=== PATIENT | male | born 1970 | race Caucasian/White ===

== ENCOUNTER 2018-05-22 15:45 | Outpatient (REF) | payer MEDICAID, SELFPAY | END 2018-05-22 16:05 | LOC: NCHCN 15:45 | PROVIDERS: PCP Physician Assistant Medical; Visit Provider Physician Assistant Medical | DX: N49.2 Inflammatory disorders of scrotum (principal) | CPT/HCPCS: 87077; 87070; 87186; 87205 ==

== ENCOUNTER 2018-06-30 00:11 | Outpatient (CLI) | payer MEDICAID, SELFPAY ==
--- NOTE | 2018-06-30 11:30 | ETT_ITS ---
*[facility]* *[facility]* [address] [place] [address] Stress Electrocardiography Rikki protocol Date of study: 06/30/2018 *PATIENT PRESENTATION* Height: 175.3cm (69in) Blood Pressure: Weight: 128.6kg (283lb) BSA: 2.56m^2 Referring physician: Garrison Colmenares V Ordering physician: Garrison Colmenares V Impressions: - Indeterminate stress test due to inadequate heart rate. - Poor functional capacity. Summary: 1. Stress: The target heart rate was not achieved. (75% THR achieved) Recommendations: Suggest getting pharmacological MPI. Indication: R07.89. History: REASON FOR VISIT: SHORTNESS OF BREATH AND CHEST PAINS WITH PHYSICAL ACTIVITY. PT HAS HYPERTENSION, DIABETES, SLEEP APNEA AND HYPERLIPIDEMIA.. Risk factors: Current tobacco use. Hypertension. Diabetes mellitus. Obesity. Dyslipidemia. Cholesterol: 216mg/dl. HDL: 64mg/dl. LDL: 118mg/dl. Triglycerides: 197mg/dl. ALLERGIES: PENICILLIN. MEDICATIONS: PAXIL 40 MG DAILY. METOPROLOL SUCCINATE ER 200 MG DAILY. HYDROCHLOROTHIAZIDE 25 MG DAILY. ROSUVASTATIN 20 MG AT BEDTIME. OMEPRAZOLE 20 MG DAILY. LOSARTAN 100 MG DAILY. NOVOLOG FLEXPEN 50 UNITS TO 60 UNITS AC TID. LEVEMIR FLEXTOUCH 100 UNITS TO 200 UNITS AT BEDTIME. ATIVAN 0.5 MG BID PRN. Protocol: Rikki protocol. Baseline ECG: SINUS RHYTHM. HR 74 BPM. Stress results: Maximal heart rate during stress was 132bpm (76% of maximal predicted heart rate). The maximal predicted heart rate was 174bpm. The target heart rate was not achieved. (75% THR achieved) Stress ECG: PT WAS NOT ABLE TO MEET HIS TARGET HEART RATE. TREADMILL PORTION OF STRESS ENDED IN 3 MINUTES & 49 SECONDS PER PT'S REQUEST DUE TO NAUSEA AND SHORTNESS OF BREATH BLUNTED HEART RATE RESPONSE TO TREADMILL EXERCISE. PT IS ON METOPROLOL SUCCINATE 200 MG DAILY (THIS AM DOSE WAS HELD). EXAGERATED BLOOD PRESSURE RESPONSE TO EXERCISE MAX HR = 132 MAX BLOOD PRESSURE = 248/72 % OF TARGET = 75 APPROXIMATE METS ACHIEVED = 5.63 NO ANGINA NO SIGNIFICANT ST SEGMENT CHANGES MARKEDLY DIMINISHED FUNCTIONAL CAPACITY FOR EXERCISE. Study data: Alireza Holloway MD supervised and was readily available during the procedure. This study was interpreted by [facility]. Study status: Routine. Consent: The risks, benefits, and alternatives to the procedure were explained to the patient and informed consent was obtained. Procedure: Initial setup. A baseline ECG was recorded. Surface ECG leads and manual cuff blood pressure measurements were monitored. Heart sounds: Normal. Lung sounds: Normal. Treadmill exercise testing was performed using the Rikki protocol. Study completion: The patient tolerated the procedure well and was discharged from the lab. Discharge: The patient left the laboratory in stable condition. Birthdate: Patient birthdate: 1970. Sex: Gender: male. Study date: Study date: 06/30/2018. Study time: 11:30 AM. Signature Documentation: The Stress ECG portion of this study was interpreted by Alireza Holloway MD. Electronically signed by Alireza Holloway 06/30/2018 13:13
--- NOTE | 2018-06-30 12:14 | MERGE_ITS ---
*[facility]* *[facility]* [address] [place] [address] Date of study: 06/30/2018 Transthoracic Echocardiography M-mode, complete 2D, complete spectral Doppler, and color Doppler *STUDY CONCLUSIONS* Summary: 1. Left ventricle: The cavity size was normal. Wall thickness was increased in a pattern of mild LVH. Systolic function was normal. The estimated ejection fraction was 55-60%. Wall motion was normal; there were no regional wall motion abnormalities. 2. Right ventricle: The cavity size was normal. Systolic function was normal. 3. Inferior vena cava: The vessel was normal in size. The respirophasic diameter changes were in the normal range (greater than or equal to 50%), consistent with normal central venous pressure. *PATIENT PRESENTATION* Height: 175.3cm ((69in) ) S/D Pressure: 150 / 72 Weight: 127.5kg ((280.4lb) ) BSA: 2.55m^2 Test start time: 12:14 PM. Test stop time: 01:00 PM. PERFORMING Unknown Alireza Story PERFORMING [facility] [employer] Sharmila Benson CONSULTING Garrison Colmenares Benjamin V REFERRING [place], Benjamin V *PROCEDURE DATA* Procedure information: This study was interpreted by [facility]. Pertinent images and digital data are archived for permanent storage and are available for subsequent review. No prior study was available for comparison. Study status: Routine. Transthoracic echocardiography. M-mode, complete 2D, complete spectral Doppler, and color Doppler. A Transthoracic Echocardiogram was performed. Scanning was performed from the parasternal, apical, subcostal, and suprasternal notch acoustic windows. Images were obtained using an ev3, [employer] 2000 cardiac ultrasound machine. Image quality was adequate. Study completion: The patient tolerated the procedure well. There were no complications. History: PMH: Chest Pain. *CARDIAC ANATOMY* Left ventricle: The cavity size was normal. Wall thickness was increased in a pattern of mild LVH. Systolic function was normal. The estimated ejection fraction was 55-60%. Wall motion was normal; there were no regional wall motion abnormalities. Findings consistent with diastolic dysfunction. There was no evidence of elevated ventricular filling pressure by Doppler parameters. Aortic valve: Trileaflet; normal thickness leaflets. Mobility was not restricted. Doppler: Transvalvular velocity was within the normal range. There was no stenosis. There was no significant regurgitation. VTI ratio of LVOT to aortic valve: 0.87. Valve area (VTI): 3.1cm^2. Indexed valve area (VTI): 1.2cm^2/m^2. Peak velocity ratio of LVOT to aortic valve: 0.78. Valve area (Vmax): 2.8cm^2. Indexed valve area (Vmax): 1.1cm^2/m^2. Mean velocity ratio of LVOT to aortic valve: 0.74. Valve area (Vmean): 2.6cm^2. Indexed valve area (Vmean): 1cm^2/m^2. Mean gradient (S): 5.5mm Hg. Peak gradient (S): 9.9mm Hg. Aorta: Aortic root: The aortic root was normal in size. Ascending aorta: The ascending aorta was normal in size. Mitral valve: Structurally normal valve. Mobility was not restricted. Doppler: Transvalvular velocity was within the normal range. There was no evidence for stenosis. There was trivial regurgitation. Valve area by pressure half-time: 2.8cm^2. Indexed valve area by pressure half-time: 1.1cm^2/m^2. Left atrium: The atrium was normal in size. Right ventricle: The cavity size was normal. Systolic function was normal. Pulmonic valve: Poorly visualized. Doppler: Transvalvular velocity was within the normal range. There was no evidence for stenosis. There was no significant regurgitation. Tricuspid valve: Structurally normal valve. Doppler: Transvalvular velocity was within the normal range. There was no evidence for stenosis. There was trivial regurgitation. Pulmonary artery: Poorly visualized. Systolic pressure could not be accurately estimated. Right atrium: The atrium was normal in size. Pericardium: There was no pericardial effusion. Systemic veins: Inferior vena cava: The vessel was normal in size. The respirophasic diameter changes were in the normal range (greater than or equal to 50%), consistent with normal central venous pressure. Measurements Left ventricle Value Reference LV ID, ED, PLAX 4.8 cm 3.5 - 6.0 LV ID, ES, PLAX 3.0 cm 2.1 - 4.0 LV PW thickness, ED, PLAX 1.2 cm LV end-diastolic volume, 1-p A2C 113 ml LV ejection fraction, 1-p A2C 54 % LV end-diastolic volume, 1-p A4C 93 ml LV ejection fraction, 1-p A4C 50 % LV e', lateral 0.088 m/sec LV E/e', lateral 8 LV e', medial 0.077 m/sec LV E/e', medial 9 LV e', average 0.083 m/sec LV E/e', average 8 Ventricular septum Value Reference IVS thickness, ED, PLAX 1.2 cm LVOT Value Reference LVOT ID, A-P 2.1 cm LVOT area 3.6 cm^2 LVOT peak velocity, S 1.22 m/sec LVOT mean velocity, S 0.83 m/sec LVOT VTI, S 26.1 cm LVOT peak gradient, S 6 mm Hg LVOT mean gradient, S 3.2 mm Hg Stroke volume (SV), LVOT DP 93 ml Stroke index (SV/bsa), LVOT DP 36 ml/m^2 Aortic valve Value Reference Aortic valve peak velocity, S 1.6 m/sec Aortic valve mean velocity, S 1.12 m/sec Aortic valve VTI, S 30.0 cm Aortic mean gradient, S 5.5 mm Hg Aortic peak gradient, S 9.9 mm Hg VTI ratio, LVOT/AV 0.87 Aortic valve area, VTI 3.1 cm^2 Velocity ratio, peak, LVOT/AV 0.78 Aortic valve area, peak velocity 2.8 cm^2 Velocity ratio, mean, LVOT/AV 0.74 Aortic valve area, mean velocity 2.6 cm^2 Aortic valve area/bsa, mean velocity 1 cm^2/m^2 Aorta Value Reference Aortic root ID, ED 3.0 cm Ascending aorta ID, A-P, S 3.1 cm Left atrium Value Reference LA ID, A-P, ES 3.8 cm LA ID/bsa, A-P 1.5 cm/m^2 <=2.2 LA area, ES, A4C 19.8 cm^2 8.8 - 23.4 LA area, ES, A2C 22 cm^2 LA volume/bsa, S 28 ml/m^2 LA volume, ES, 2-p 63 ml LA volume/bsa, ES, 2-p 25 ml/m^2 LA/aortic root ratio 1.26 Mitral valve Value Reference Mitral E-wave peak velocity 0.69 m/sec Mitral A-wave peak velocity 0.64 m/sec Mitral deceleration time (H) 269 ms 150 - 230 Mitral pressure half-time 78 ms Mitral E/A ratio, peak 1.09 Mitral valve area, PHT, DP 2.8 cm^2 Right atrium Value Reference RA area, ES, A4C 11.7 cm^2 8.3 - 19.5 Legend: (L) and (H) deonte values outside specified reference range. I have personally reviewed the images and have reviewed and edited the reported findings. Electronically signed by Alireza Holloway 06/30/2018 13:35
== END 2018-06-30 00:31 ==
PROVIDERS: PCP Physician Assistant Medical; Visit Provider Physician Assistant Medical
DX: R07.9 Chest pain, unspecified (principal); R06.02 Shortness of breath; I10 Essential (primary) hypertension; E11.9 Type 2 diabetes mellitus without complications; Z79.4 Long term (current) use of insulin; E78.5 Hyperlipidemia, unspecified; Z72.0 Tobacco use
CPT/HCPCS: 93017; 93306

== ENCOUNTER 2018-12-28 14:23 | Emergency (ER) | payer MEDICAID, SELFPAY ==
[2018-12-28 14:24] VITALS: BP 143/70; PULSE 71; RESP 18; TEMP 36.5; O2SAT 93
--- NOTE | 2018-12-28 14:42 | DI.RAD_ITS ---
SYMPTOMS/DIAGNOSIS: COUGH, SHORTNESS OF BREATH PA AND LATERAL CHEST: There are no prior comparison exams. The cardiac and mediastinal contours have a normal appearance. The lungs are well inflated and clear. No infiltrate, effusion or pulmonary edema is seen. No pneumothorax is identified. IMPRESSION: Negative chest x-ray.
--- NOTE | 2018-12-28 15:07 | ED.GENADUL_ITS ---
Discharge Plan Disposition Patient Disposition: HOME Condition: Stable Discharge Details Chief Complaint: RespSymp Clinical Impression: URI (upper respiratory infection), Asthma exacerbation, mild Primary Care Provider: Dwayne Clay ED Provider: Scott Pinzon Home Meds and New Rx's Prescriptions: New benzonatate 200 mg capsule 200 mg PO TID PRN (Reason: cough) Qty: 30 RF: 0 prednisone 20 mg tablet 40 mg PO DAILY 3 Days Qty: 6 RF: 0 doxycycline hyclate 100 mg tablet 100 mg PO BID 7 Days Qty: 14 RF: 0 Continued clindamycin HCl 75 mg Capsule 25 mg PO DAILY RF: 0 spironolactone 25 mg Tablet 25 mg PO DAILY RF: 0 bupropion HCl [Wellbutrin SR] 100 mg Tablet Sustained-Release 12 Hr 100 mg PO DAILY RF: 0 losartan 100 mg Tablet 100 mg PO DAILY RF: 0 Novolog Flexpen U-100 Insulin 100 unit/mL (3 mL) Insulin Pen 0 unit SUBCUT AC RF: 0 Levemir U-100 Insulin 100 unit/mL Solution 100 - 160 unit SUBCUT QHS RF: 0 metoprolol succinate 100 mg Capsule,Sprinkle,Er 24hr 100 mg PO DAILY RF: 0 paroxetine HCl [Paxil] 20 mg Tablet 20 mg PO DAILY RF: 0 Discharge Instructions Instructions: Asthma (ED), Upper Respiratory Infection (ED) Additional Instructions: Return to emergency department immediately for any new or significant worsening of symptoms otherwise follow-up with your primary care provider if not improving after taking the medications. Stand Alone Forms: Work Release Referrals: Dwayne Clay [Primary Care Provider] - Discharge Data Discharge Date/Time-TO BE ENTERED AT DEPARTURE: 12/28/18 16:18 Medical Decision Making Patient presenting to the emergency department for chief complaint of URI and cold type symptoms. Patient states nasal congestion that then progressed into sore throat and cough. The symptoms started 3 days ago. Patient denies any fever chills but does state some chest tightness. Patient does have a history of diabetes, and asthmatic bronchitis. 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 Physical exam shows unremarkable HEENT exam, normal cardiac exam, lung sounds show diffuse wheezing with rhonchi heard in right middle lobe. Some of these lung sounds did clear with coughing. Given the wheezing do feel that DuoNeb may help patient breathe easier and chest x-ray for rule out of pneumonia but mostly suspicious of viral etiology upper respiratory tract infection. Patient is otherwise stable with stable vital signs. Chest x-ray was reviewed along with radiologist dictation that showed no acute findings. Patient to be discharged with albuterol inhaler for chest tightness along with prednisone. Patient states that he has been on prednisone before and clearly understands to continue to check his sugars and watch for any significant fluctuation. Highly suspicious of upper respiratory tract infection given 3 days of symptoms, no fever chills, not tachypneic. Return precautions were discussed. Given that patient is a diabetic, smoker, complaining of chest tightness patient placed on doxycycline. discussion of diagnosis and plan of care patient has no further needs, questions, or concerns and states clear understanding to return to the emergency department for any worsening symptoms. HPI General Mode of arrival: ambulatory . Date/Time Provider Initiated Documentation: 12/28/18 14:24 . Limitations to Documentation: no limitations . Information obtained by: patient and RN notes reviewed . History of Present Illness 48 year old M presents to the emergency department with the chief complaint of Nasal congestion, cough, shortness of breath, described as moderate and similar to prior episodes, with intensity rated at 7. Quality is described as aching, and is localized to the head. Patient started experiencing this day(s) (3) and it has been constant. No relieving factors improve symptom(s), Patient did receive the following treatments prior to arrival, none Related Data Home Medications Medication Instructions Recorded Confirmed Levemir U-100 Insulin 100 - 160 unit SUBCUT QHS 12/28/18 12/28/18 Novolog Flexpen U-100 Insulin 0 unit SUBCUT AC 12/28/18 12/28/18 benzonatate 200 mg PO TID PRN #30 cap 12/28/18 bupropion HCl [Wellbutrin SR] 100 mg PO DAILY 12/28/18 12/28/18 clindamycin HCl 25 mg PO DAILY 12/28/18 12/28/18 doxycycline hyclate 100 mg PO BID 7 Days #14 tab 12/28/18 losartan 100 mg PO DAILY 12/28/18 12/28/18 metoprolol succinate 100 mg PO DAILY 12/28/18 12/28/18 paroxetine HCl [Paxil] 20 mg PO DAILY 12/28/18 12/28/18 prednisone 40 mg PO DAILY 3 Days #6 tab 12/28/18 spironolactone 25 mg PO DAILY 12/28/18 12/28/18 Previous Rx's Medication Instructions Recorded benzonatate 200 mg PO TID PRN #30 cap 12/28/18 doxycycline hyclate 100 mg PO BID 7 Days #14 tab 12/28/18 prednisone 40 mg PO DAILY 3 Days #6 tab 12/28/18 Allergies Allergy/AdvReac Type Severity Reaction Status Date / Time Penicillins Allergy Mild Anaphylaxsi Unverified 12/28/18 14:34 s General Stated Complaint: RespSymp BG: 3 Review of Systems Constitutional Reports chills, Denies fever(s) and Reports malaise ENT Reports as per HPI, Denies ear discharge, Denies otalgia, Reports nasal congestion, Reports nasal discharge, Denies neck pain, Reports post nasal drip, Reports sinus pressure, Reports sore throat and Denies throat swelling Cardiovascular Denies chest pain and Reports dyspnea Respiratory Reports cough and Reports dyspnea Musculoskeletal Denies joint swelling and Denies neck pain Integumentary/Breasts Denies rash Allergic/Immunologic Denies throat swelling [facility] Social History Smoking/Tobacco Use Status: Current every day Alcohol Intake: never Substance use type: does not use Do you feel safe at home: Yes Do you feel safe in your relationship?: Yes Exam Const General: cooperative, comfortable and no acute distress Orientation: alert and awake [facility] Head: normal to inspection, normocephalic and atraumatic Ears: hearing grossly normal bilaterally, external ears normal and TM's normal bilaterally General nose exam: external nose normal Face and sinus: no erythema Mouth: oral mucosae normal, no drooling, no muffled voice and no trismus Throat: posterior oropharynx normal, tonsils normal and uvula midline Neck Neck: normal visual inspection, full ROM, no lymphadenopathy, no meningeal signs, trachea midline and supple Resp Effort & Inspection: normal respiratory effort, able to speak in complete sentences and cough Quality of cough: dry Auscultation: rhonchi right lower and wheezes scattered wheezes Cardio Rate: regular rate Rhythm: regular rhythm Heart Sounds: S1 normal, S2 normal, normal S1 and S2, no click, no gallops, no murmurs and no rubs Skin General skin exam: no rashes or lesions noted and dry skin (warm) Course Vital Signs Temperature 36.5 C 12/28/18 14:24 Pulse 71 12/28/18 14:24 Respiratory Rate 18 12/28/18 14:24 Blood Pressure 143/70 H 12/28/18 14:24 Pulse Oximetry 93 L 12/28/18 14:24 Temperature 36.5 C 12/28/18 14:24 Temperature Source Skin 12/28/18 14:24 Pulse 71 12/28/18 14:24 Respiratory Rate 18 12/28/18 14:24 Respiratory Effort Non-Labored 12/28/18 14:28 Blood Pressure 143/70 H 12/28/18 14:24 Blood Pressure Position Supine 12/28/18 14:24 Pulse Oximetry 93 L 12/28/18 14:24 Oxygen Delivery Method Room Air 12/28/18 14:24 Oxygen Flow Rate 0 12/28/18 14:24
[2018-12-28 15:17] VITALS: RESP 16; RESP 4
[2018-12-28] MEDS: Albuterol/Ipratropium 3 ML UPD VIAL UPD (15:17)
[2018-12-28 15:47] VITALS: BP 120/67; PULSE 69; RESP 16; TEMP 37.9; O2SAT 94
[2018-12-28] MEDS: Albuterol HFA 8 GM 60 PUFF INH IH (16:15)
[2018-12-28] MEDS: Doxycycline Hyclate 100 MG CAP PO (16:16)
[2018-12-28] MEDS: Inhaler, Assist Device 1 EACH MC (16:16)
[2018-12-28] MEDS: predniSONE 20 MG TAB 40 MG PO (16:17)
== END 2018-12-28 16:18 | disposition home or self-care (01) ==
PROVIDERS: Emergency Provider Nurse Practitioner Family; PCP Family Medicine
DX: J45.901 Unspecified asthma with (acute) exacerbation (principal); F17.210 Nicotine dependence, cigarettes, uncomplicated
CPT/HCPCS: 94640; 99283; 71046; J7512; J7620

== ENCOUNTER 2019-03-01 21:42 | Emergency (ER) | payer MEDICAID, SELFPAY ==
[2019-03-01 21:46] VITALS: BP 145/63; PULSE 87; RESP 20; TEMP 36.8; O2SAT 98
--- NOTE | 2019-03-01 21:53 | ED.GENADUL_ITS ---
Discharge Plan Disposition Patient Disposition: HOME Condition: Fair Discharge Details Chief Complaint: GenMedical Clinical Impression: URI (upper respiratory infection) Primary Care Provider: Dwayne Clay ED Provider: Bela Martinez Home Meds and New Rx's Prescriptions: New prednisone 20 mg tablet 40 mg PO DAILY Qty: 6 RF: 0 doxycycline hyclate 100 mg capsule 100 mg PO BID Qty: 12 RF: 0 Continued spironolactone 25 mg Tablet 25 mg PO DAILY RF: 0 losartan 100 mg Tablet 100 mg PO DAILY RF: 0 Novolog Flexpen U-100 Insulin 100 unit/mL (3 mL) Insulin Pen 0 unit SUBCUT AC RF: 0 Levemir U-100 Insulin 100 unit/mL Solution 100 - 160 unit SUBCUT QHS RF: 0 metoprolol succinate 100 mg Capsule,Sprinkle,Er 24hr 100 mg PO DAILY RF: 0 paroxetine HCl [Paxil] 20 mg Tablet 20 mg PO DAILY RF: 0 chlorothiazide 500 mg Tablet RF: 0 Discharge Instructions Instructions: Doxycycline (By mouth), Albuterol (By breathing), Prednisone (By mouth), Upper Respiratory Infection (ED) Additional Instructions: Encourage hydration. May use Tylenol and ibuprofen as needed for discomfort. Please follow-up with primary care as already scheduled next week for reevaluation. Prednisone as prescribed for inflammatory reaction and asthma. First dose was given here tonight, does not do for another 24 hours. Doxycycline 100 mg every 12 hours. You may use the albuterol inhaler 1 puff every 6 hours as needed for wheezing or shortness of breath. If you develop difficulty breathing, shortness of breath, inability stay hydrated, chest pain or other new/worsening symptoms please seek care urgently once again. Referrals: Dwayne Clay [Primary Care Provider] - Medical Decision Making Patient is a 48-year-old male with history of hypertension and asthma, presenting today with chief complaint of URI. Reports that he began having symptoms 4 days ago. Is endorsing bilateral ear congestion, nasal congestion, rhinorrhea, cough and diarrhea. Denies any fevers or chills. No sore throat. No recent travel. No recent antibiotics. Patient reports that he has been feeling short of breath and wheezy. Has been using his albuterol inhaler as previously prescribed with good relief. Is not currently feeling short of breath. Believes that he may have contracted this while at work. On exam, patient appears nontoxic. He is an over weight male, resting comfortably and speaking in complete sentences. Normal HEENT exam, lung berrios are clear bilaterally with no wheeze, rales or rhonchi. Normal cardiac exam. Patient noted to be hypertensive at 145/63, otherwise VS WNL. Discussed that treatment for his asthma exacerbation is appropriate but that his URI is likely viral. Myself and nursing staff both attempted to educate the patient on antibiotic stewardship but patient is not responding well to this. I advised on holding off on abx at this time but he reports that he will need to be hospitalized if he does not receive this treatment. We discussed a watch and wait approach but patient prefers treatment at this time. At patient request, patient will be treated with Doxycycline. He received this treatment historically on chart review. Jen given first dose here. Will replace his albuterol inhaler as this is almost out at home. He was given strict return precautions. Has appointment with PCP next week. Advised he keep this to be reevaluated. Hoping that PCP will also discuss antibiotic stewardship further. All of his questions yesenia noble were addressed, he is in agreement with this plan. HPI General Mode of arrival: ambulatory . Date/Time Provider Initiated Documentation: 03/01/19 21:44 . Limitations to Documentation: no limitations . Information obtained by: patient and RN notes reviewed . History of Present Illness 48 year old M presents to the emergency department with the chief complaint of URI, described as moderate and similar to prior episodes, Quality is described as aching (in ears), Patient started experiencing this day(s) (4) and it has been constant. No relieving factors improve symptom(s), No exacerbating factors reported . Patient notes cough and shortness of breath (chest congestion, not currently sympatomic); denies chest pain, diaphoresis, fever/chills, headaches, loss of appetite, nausea/vomiting, rash and weakness. Patient did receive the following treatments prior to arrival, none Related Data Home Medications Medication Instructions Recorded Confirmed Levemir U-100 Insulin 100 - 160 unit SUBCUT QHS 12/28/18 03/01/19 Novolog Flexpen U-100 Insulin 0 unit SUBCUT AC 12/28/18 03/01/19 losartan 100 mg PO DAILY 12/28/18 03/01/19 metoprolol succinate 100 mg PO DAILY 12/28/18 03/01/19 paroxetine HCl [Paxil] 20 mg PO DAILY 12/28/18 03/01/19 spironolactone 25 mg PO DAILY 12/28/18 03/01/19 chlorothiazide 03/01/19 doxycycline hyclate 100 mg PO BID #12 cap 03/01/19 prednisone 40 mg PO DAILY #6 tab 03/01/19 Previous Rx's Medication Instructions Recorded doxycycline hyclate 100 mg PO BID #12 cap 03/01/19 prednisone 40 mg PO DAILY #6 tab 03/01/19 Allergies Allergy/AdvReac Type Severity Reaction Status Date / Time Penicillins Allergy Mild Anaphylaxsi Unverified 03/01/19 21:53 s General Stated Complaint: GenMedical BG: 3 Review of Systems Constitutional Constitutional: Reports as per HPI, Denies chills, Denies fever(s), Denies headache(s) and Denies poor appetite Eyes Eyes: Reports as per HPI, Denies eye discharge and Denies irritation ENT Ears, Nose, Mouth, and Throat: Reports as per HPI, Denies change in voice, Denies dysphagia, Denies vertigo, Denies ear discharge, Reports otalgia (bilateral), Denies headache(s), Denies mouth pain, Reports nasal congestion, Reports nasal discharge, Denies neck mass, Denies neck pain, Reports sinus pain, Reports sinus pressure, Denies sore throat and Denies throat swelling Cardiovascular Cardiovascular: Reports as per HPI, Denies chest pain and Reports dyspnea (associated with cough) Respiratory Respiratory: Reports as per HPI, Reports cough, Denies hemoptysis, Denies excessive phlegm production, Denies pain on inspiration, Denies pain with cough and Reports dyspnea (associated with cough) Gastrointestinal Gastrointestinal: Reports as per HPI, Denies abdominal pain, Denies change in bowel habits, Denies change in stool character, Denies dysphagia, Denies nausea and Denies vomiting Musculoskeletal Musculoskeletal: Denies neck pain Integumentary/Breasts Skin/Breast: Reports as per HPI and Denies rash Neurologic Neurologic: Reports as per HPI, Denies vertigo and Denies headache(s) Allergic/Immunologic Allergic/Immunologic: Denies throat swelling PFSH Social History Smoking/Tobacco Use Status: Former Tobacco Use Quit Date: 02/15/19 Alcohol Intake: never Drug use: Never Substance use type: does not use Do you feel safe at home: Yes Do you feel safe in your relationship?: Yes Exam Const General: cooperative, healthy appearing, comfortable, no acute distress, well developed and well groomed Nutritional Appearance: well nourished and overweight Orientation: alert and awake [facility] Head: normal to inspection, normocephalic and atraumatic Ears: hearing grossly normal bilaterally, external ears normal and TM's normal bilaterally General nose exam: external nose normal and nares normal Face and sinus: normal facial exam, sinuses nontender and face symmetric Mouth: oral mucosae normal, lip normal, tongue normal, oropharynx normal and moist mucous membranes Teeth and gingiva: dentition normal Throat: posterior oropharynx normal, tonsils normal and uvula midline Eyes General: appearance normal, both eyes and all related structures Neck Neck: normal visual inspection, full ROM, no lymphadenopathy and no meningeal signs Resp Effort & Inspection: normal respiratory effort, able to speak in complete sentences and no respiratory distress Auscultation: clear to auscultation bilaterally, no rales, no rhonchi and no wheezes Cardio Rate: regular rate Rhythm: regular rhythm Heart Sounds: S1 normal and S2 normal Skin General skin exam: no rashes or lesions noted Neuro General: alert and awake Cognition: normal cognition Speech: speech normal Gait: normal gait Psych Appearance: grossly normal and well kempt Mental Status: mental status grossly normal Speech and Movement: speech and movement normal Course Vital Signs Vital signs: Vital Signs Temperature 36.8 C 03/01/19 21:46 Pulse 87 03/01/19 21:46 Respiratory Rate 03/01/19 21:46 Blood Pressure 145/63 H 03/01/19 21:46 Pulse Oximetry 98 03/01/19 21:46 Temperature 36.8 C 03/01/19 21:46 Pulse 87 03/01/19 21:46 Respiratory Rate 20 03/01/19 21:46 Blood Pressure 145/63 H 03/01/19 21:46 Pulse Oximetry 98 03/01/19 21:46 Oxygen Delivery Method Room Air 03/01/19 21:46 Oxygen Flow Rate 0 03/01/19 21:46 Pain Level 6 03/01/19 21:46
[2019-03-01 21:56] VITALS: RESP 20
[2019-03-01 22:11] VITALS: BP 145/63; PULSE 87; RESP 20; O2SAT 98
[2019-03-01] MEDS: Albuterol HFA 8 GM 60 PUFF INH IH (22:13)
[2019-03-01] MEDS: predniSONE 20 MG TAB 40 MG PO (22:14)
[2019-03-01] MEDS: Doxycycline Hyclate 100 MG CAP PO ×2 (22:14)
== END 2019-03-01 22:12 | disposition home or self-care (01) ==
PROVIDERS: Emergency Provider Physician Assistant; PCP Family Medicine
DX: J06.9 Acute upper respiratory infection, unspecified (principal); J45.909 Unspecified asthma, uncomplicated; I10 Essential (primary) hypertension
CPT/HCPCS: 99283; J7512

== ENCOUNTER 2019-03-21 14:39 | Outpatient (REF) | payer MEDICAID, SELFPAY ==
[2019-03-21 20:24] LABS: ALT 47 U/L (16-63); AST 32 U/L (15-37); Albumin 3.8 g/dL (3.4-5.0); Alkaline Phosphatase 102 U/L (46-116); Anion Gap 9.5 mmol/L (3-11); BUN 39 mg/dL (7-18); Bilirubin, Total 0.3 mg/dL (0.2-1.0); CO2 29.5 mmol/L (21.0-32.0); CREATININE 1.32 mg/dL (0.70-1.30); Calcium 9.3 mg/dL (8.5-10.1); Calculated LDL 56 mg/dL; Chloride 99 mmol/L (98-107); Cholesterol 151 mg/dL (50-200); Estimated GFR 58.39 (mL/min/1.73m2); Ferritin 204 ng/mL (8-388); Glucose 100 mg/dL (70-100); HDL Cholesterol 48 mg/dL (40-60); Potassium 4.2 mmol/L (3.5-5.1); Sodium 138 mmol/L (136-145); Total Protein 7.2 g/dL (6.4-8.2); Triglyceride 238 mg/dL (30-150)
== END 2019-03-21 14:59 ==
LOC: NCHCN 14:39
PROVIDERS: PCP Family Medicine; Visit Provider Family Medicine
DX: E10.9 Type 1 diabetes mellitus without complications (principal); E78.5 Hyperlipidemia, unspecified; G25.81 Restless legs syndrome
CPT/HCPCS: 80053; 80061; 82728

== ENCOUNTER 2019-12-06 12:15 | Outpatient (REF) | payer MEDICAID, SELFPAY ==
[2019-12-06 15:46] LABS: Anion Gap 11.1 mmol/L (3-11); BUN 28 mg/dL (7-18); CO2 25.9 mmol/L (21.0-32.0); CREATININE 1.23 mg/dL (0.70-1.30); Calcium 9.4 mg/dL (8.5-10.1); Chloride 96 mmol/L (98-107); Glucose 267 mg/dL (74-106); Potassium 4.3 mmol/L (3.5-5.1); Sodium 133 mmol/L (136-145)
== END 2019-12-06 12:35 ==
LOC: NCHCN 12:15
PROVIDERS: PCP Family Medicine; Visit Provider Family Medicine
DX: N28.9 Disorder of kidney and ureter, unspecified (principal); E87.5 Hyperkalemia
CPT/HCPCS: 80048

== ENCOUNTER 2020-01-07 16:39 | Outpatient (REF) | payer MEDICAID, SELFPAY ==
[2020-01-07 17:45] LABS: Abs Immature Grans 0.12 10^3/uL (0.0-0.06); Absolute Basophil Count 0.09 10^3/uL (0.0-0.2); Absolute Eosinophil Count 0.23 10^3/uL (0.0-0.7); Absolute Lymphocyte Count 2.08 10^3/uL (1.2-3.4); Absolute Monocyte Count 0.58 10^3/uL (0.1-0.8); Absolute Neutrophil Count 7.84 10^3/uL (1.2-6.7); Basophils % 0.8; Eosinophils % 2.1; HCT 41.8 % (40.0-50.0); HGB 13.8 g/dL (13.5-17.5); Immature Grans % 1.1; MCH 30.7 pg (27.0-33.0); MCV 93.1 fL (80-95); MPV 10.8 fL (8.0-11.0); Monocytes % 5.3; Neutrophils % 71.7; Platelet Count 276 10^3/uL (130-400); RBC 4.49 10^6/uL (4.36-5.78); RDW 12.4 % (11.8-14.1); RDW-SD 42.2 fL; WBC 10.93 10^3/uL (4.4-10.8)
[2020-01-07 17:52] LABS: Anion Gap 12.8 mmol/L (3-11); BUN 28 mg/dL (7-18); CO2 25.2 mmol/L (21.0-32.0); CREATININE 1.25 mg/dL (0.70-1.30); Calcium 9.6 mg/dL (8.5-10.1); Chloride 100 mmol/L (98-107); Glucose 248 mg/dL (74-106); Potassium 3.9 mmol/L (3.5-5.1); Sodium 138 mmol/L (136-145)
[2020-01-09 08:53] LABS: SARS-CoV-2 RNA Undetected (Undetected); SARS-CoV-2 Specimen Source Nasopharynx
== END 2020-01-07 16:59 ==
LOC: NCHCN 16:39
PROVIDERS: PCP Family Medicine; Visit Provider Nurse Practitioner Family
DX: R53.83 Other fatigue (principal); R11.0 Nausea; Z11.59 Encounter for screening for other viral diseases
CPT/HCPCS: 80048; U0003; 85025

== ENCOUNTER 2021-03-02 20:36 | Outpatient (REF) | payer MEDICAID, SELFPAY ==
[2021-03-02 22:34] LABS: Anion Gap 11.2 mmol/L (3-11); BUN 19 mg/dL (7-18); CO2 26.8 mmol/L (21.0-32.0); CREATININE 1.4 mg/dL (0.70-1.30); Calcium 9.5 mg/dL (8.5-10.1); Chloride 102 mmol/L (98-107); Estimated GFR 54.09 (mL/min/1.73m2); Glucose 238 mg/dL (74-106); Potassium 4.5 mmol/L (3.5-5.1); Sodium 140 mmol/L (136-145)
== END 2021-03-02 20:37 | disposition home or self-care (01) ==
LOC: NCHCN 20:36
PROVIDERS: PCP Family Medicine; Visit Provider Family Medicine
DX: N28.9 Disorder of kidney and ureter, unspecified (principal); R80.9 Proteinuria, unspecified
CPT/HCPCS: 80048

== ENCOUNTER 2021-03-20 02:40 | Outpatient (CLI) | payer MEDICAID, SELFPAY ==
[2021-03-20 12:49] LABS: Source Nasal/Nares
[2021-03-20 19:09] LABS: COVID-19 PCR Negative (Negative)
== END 2021-03-20 02:41 | disposition home or self-care (01) ==
LOC: LBO 02:40
PROVIDERS: PCP Family Medicine; Visit Provider Ophthalmology
DX: Z20.822 Contact with and (suspected) exposure to COVID-19 (principal); Z01.818 Encounter for other preprocedural examination
CPT/HCPCS: 87635

== ENCOUNTER 2021-03-23 06:35 | Day surgery (SDC) | payer MEDICAID, SELFPAY ==
[2021-03-23] MEDS: Tropicam./Phenyleph. (1/2.5%) 5 ML BTL OD ×3 (06:59→07:12)
--- NOTE | 2021-03-23 07:04 | W.ANESPRE ---
General Info Date of Service Date Performed: 03/23/21 Height: 5 ft 9 in Weight: 127.006 kg Body Mass Index (BMI): 41.3 Surgical Procedure: Operation Date: 03/23/21 07:40 Proposed Procedures Side Surgeon p Cataract Extraction with IOL Implant Right Cabrera Goodwin MD Meds Allergies and Home Medications Allergies Allergy/AdvReac Type Severity Reaction Status Date / Time amlodipine Allergy Intermediate Other (See Unverified 03/23/21 07:01 Comment) Penicillins Allergy Mild Anaphylaxsi Unverified 03/23/21 07:01 s Home Medication Medication Instructions Recorded Levemir U-100 Insulin 100 - 160 unit SUBCUT QHS 12/28/18 insulin aspart U-100 [Novolog 0 unit SUBCUT AC 12/28/18 Flexpen U-100 Insulin] metoprolol succinate 100 mg PO DAILY 12/28/18 paroxetine HCl [Paxil] 20 mg PO DAILY 12/28/18 doxycycline hyclate 100 mg PO BID #12 cap 03/01/19 chlorthalidone 25 mg PO DAILY 03/19/21 insulin aspart U-100 [Novolog See Rx Instructions .ROUTE .COMPLEX 03/19/21 U-100 Insulin aspart] valsartan 320 mg PO DAILY 03/19/21 Current Visit Medications: Current Medications Generic Name Dose Route Start Last Admin Trade Name Freq PRN Reason Stop Dose Admin Acetaminophen 1,000 mg 03/23/21 06:00 Acetaminophen 500 Mg Tab PO Q4H PRN PRN Miscellaneous Medication 0 ml 03/23/21 06:00 Prednisolone 1%, Moxifloxacin 0.5%, Nepafenac 0.1% 5ml Btl OD DIRECTED GINA Miscellaneous Medication 0 ml 03/23/21 06:00 03/23/21 06:59 Tropicam./Phenyleph. (1/2.5%) 5 Ml Btl OD 1 drp DIRECTED GINA Administration Tetracaine HCl 0 ml 03/23/21 06:00 Tetracaine 0.5% 4 Ml Btl OD DIRECTED GINA PFSH Active Problems Active Problems: Problem Status Onset Code Posterior subcapsular age-related cataract, right eye H25.041 Nuclear sclerotic cataract of right eye H25.11 Medical History Medical History Bilateral carpal tunnel syndrome Depression with anxiety Diabetes Edema GERD (gastroesophageal reflux disease) Hiatal hernia HLD (hyperlipidemia) HTN (hypertension) Mild renal insufficiency MRSA carrier Nephropathy AVIS (obstructive sleep apnea) RLS (restless legs syndrome) Venous stasis dermatitis Tobacco Smoking/Tobacco Use Status: Current-Occasional Tobacco Type: cigarettes Alcohol Alcohol Intake: never Substance Use Substance use: Never Substance use type: does not use Vital Signs and Lab Results Lab Results Blood Type / Crossmatch: No Data to Display Complete Blood Count: No Data to Display Complete Metabolic Panel: Sodium Level 140 mmol/L (136-145) 03/02/21 12:00 03/02/21 Potassium Level 4.5 mmol/L (3.5-5.1) 03/02/21 12:00 03/02/21 Chloride Level 102 mmol/L (98-107) 03/02/21 12:00 03/02/21 Carbon Dioxide Level 26.8 mmol/L (21.0-32.0) 03/02/21 12:00 03/02/21 Blood Urea Nitrogen 19 mg/dL (7-18) H 03/02/21 12:00 03/02/21 Creatinine 1.4 mg/dL (0.70-1.30) H 03/02/21 12:00 03/02/21 Estimated GFR/1.73 m2 54.09 (mL/min/1.73m2) 03/02/21 12:00 03/02/21 Calcium Level 9.5 mg/dL (8.5-10.1) 03/02/21 12:00 03/02/21 Glucose Level 238 mg/dL (74-106) H 03/02/21 12:00 03/02/21 Liver Function Panel: No Data to Display Coagulation Panel: No Data to Display Cardiac Panel: No Data to Display Arterial Blood Gas: No Data to Display Venous Blood Gas: No Data to Display Pancreas Panel: No Data to Display Thyroid Panel: No Data to Display Infectious Disease: Coronavirus (COVID-19)(PCR) Negative (Negative) 03/20/21 10:27 03/20/21 Coronavirus 2019 Source Nasal/Nares 03/20/21 10:03/20/21 Blood Cultures: No Data to Display Toxicology Panel: No Data to Display Imaging and Studies Imaging and Studies Echocardiogram Summary: Summary: 1. Left ventricle: The cavity size was normal. Wall thickness was increased in a pattern of mild LVH. Systolic function was normal. The estimated ejection fraction was 55-60%. Wall motion was normal; there were no regional wall motion abnormalities. 2. Right ventricle: The cavity size was normal. Systolic function was normal. 3. Inferior vena cava: The vessel was normal in size. The respirophasic diameter changes were in the normal range (greater than or equal to 50%), consistent with normal central venous pressure. Anesthesia Assessment and Plan Anesthesia History Personal History: No History of Anesthesia Complications Family History: No Family History of Anesthesia Complications Exercise Tolerance Exercise Tolerance: Metabolic Equivalents>4 Pertinent Negatives Pertinent Negatives: No Symptoms of GERD, No Major Cardiovascular Symptoms or Complaints, No Major Pulmonary Symptoms or Complaints and No History of CVA/TIA Cardiac & Pulmonary Exam Cardiac Exam: Normal S1/S2 Heart Sounds Pulmonary Exam: Clear Bilateral Breath Sounds Airway Exam Known Difficult Airway: No Mallampati Class: 3 Mouth Opening: Narrow (< 3cm) Thyromental Distance: Greater than 3 cm Neck Range of Motion: Full ROM Neck Circumference: Normal Teeth Condition: Normal Dentition ASA Classification ASA Score: ASA 2 Emergency Case?: No NPO Status NPO Status: NPO Clears >2 hours, Solids >8 hours Anesthesia Plan Resuscitation Status: Full Code Anesthesia Technique: MAC Anesthesia Airway Planned: Natural Airway Monitors Used: Standard Monitors
[2021-03-23 07:05] VITALS: BP 138/71; PULSE 67; RESP 16; TEMP 36.5; O2SAT 98
[2021-03-23 07:06] VITALS: BMI 41.3
[2021-03-23] MEDS: Tetracaine 0.5% 4 ML BTL OD (07:34)
[2021-03-23] MEDS: Lidocaine 2% Jelly 6 ML SYR (07:35)
[2021-03-23] MEDS: Lidocaine 1% Pres-Free 5 ML VIAL (07:43)
[2021-03-23] MEDS: Balanced Salt Soln.-PLUS 500 ML BAG (07:43)
[2021-03-23] MEDS: Duovisc Viscoelastic System EACH 1 EACH (07:46)
[2021-03-23] MEDS: Povidone-Iodine Ophth 30 ML BTL (07:47)
--- NOTE | 2021-03-23 08:24 | W.PM.DSUDISC ---
Discharge Plan Disposition Patient Disposition: HOME Condition: Good Discharge Details Reason For Visit: Cataract Attending Provider: Cabrera Goodwin Primary Care Provider: Dwayne Clay [facility] and New Rx's Prescriptions: No Action insulin aspart U-100 [Novolog Flexpen U-100 Insulin] 100 unit/mL (3 mL) Insulin Pen 0 unit SUBCUT AC RF: 0 Levemir U-100 Insulin 100 unit/mL Solution 100 - 160 unit SUBCUT QHS RF: 0 metoprolol succinate 100 mg Capsule,Sprinkle,Er 24hr 100 mg PO DAILY RF: 0 paroxetine HCl [Paxil] 20 mg Tablet 20 mg PO DAILY RF: 0 doxycycline hyclate 100 mg capsule 100 mg PO BID Qty: 12 RF: 0 chlorthalidone 25 mg tablet 25 mg PO DAILY RF: 0 insulin aspart U-100 [Novolog U-100 Insulin aspart] 100 unit/mL Solution See Rx Instructions .ROUTE .COMPLEX RF: 0 valsartan 320 mg tablet 320 mg PO DAILY RF: 0 Discharge Instructions Stand Alone Forms: Post-op Topical Cataract, Mateusz Galindo (DSU) Discharge Orders Discharge Orders: Discharge Order (Routine); Ordered 03/23/21 Ordered By: Cabrera Goodwin DS: Diagnosis Discharge Diagnosis (1) Posterior subcapsular age-related cataract, right eye: Status: Resolved (2) Nuclear sclerotic cataract of right eye: Status: Resolved
[2021-03-23 08:25] VITALS: BP 137/72; PULSE 74; RESP 16; TEMP 36.3; O2SAT 94
--- NOTE | 2021-03-23 08:25 | ROE_ITS ---
Date of service: 03/23/21 Time of Service: 08:25 Operative Note Operative Note DATE OF PROCEDURE: 03/23/21 POST-OP DIAGNOSIS: same PROCEDURE: Cataract extraction using phacoemulsification with intraocular lens implant, right eye SURGEON: Cabrera Goodwin ANESTHESIA TYPE: Local By Surgeon and MAC Refer to Anesthesia Record ESTIMATED BLOOD LOSS: 0 PATHOLOGY: none sent COMPLICATIONS: None Patient was transported to: same day Patient's condition: stable Implants: [employer] Yannick/DEBO Tecnis [id number] Indications: Progressive visual loss due to cataract, right eye Procedure Description: CATARACT SURGERY OPERATIVE REPORT PREOPERATIVE DIAGNOSIS: 1. Nuclear/posterior subcapsular cataract, right eye POSTOPERATIVE DIAGNOSIS: Same OPERATION: 1. Cataract extraction using phacoemulsification with posterior chamber intraocular lens implant, right eye. IOL: IOL Piano Tuner/Model: [employer] Yannick / DEBO Tecnis [id number] IOL Power: + 22.5 diopters IOL Serial Number: [id number] Optic Diameter: 6.0mm Haptic/Overall Diameter: 13.0mm PHACO INFO: DrakeOpenSilo Vision System with OZil and Active Fluidics Cumulative Dispersed Energy (CDE): 1.39 seconds SURGEON: Cabrera Goodwin MD, DEANN ANESTHESIA: Monitored Anesthesia Care (MAC), with local sub-tenon's anesthetic infiltration COMPLICATIONS: None SPECIMENS: None INDICATIONS FOR PROCEDURE: The patient is a 50-year-old gentleman with history of diabetes with significant diabetic retinopathy. He has undergone panretinal laser photocoagulation in the right eye for his diabetic retinopathy in the past. He has developed a significant nuclear and posterior subcapsular cataract in the right eye and desires cataract surgery attempt to improve and maximize his vision. PROCEDURE: The correct surgical eye was identified and marked as the right eye and the pupil was dilated in the preoperative area using mydriatics and cycloplegics. The dilated pupil size was 5.5 mm. Oral sedation was administered in the form of an Imprimis MKO Melt (midazolam 3mg/ketamine 25mg/ondansetron 2mg). The patient was brought to the operating room where cardiopulmonary monitoring was instituted and surgical time-out was performed, confirming the correct operative eye and IOL power. Topical anesthesia was administered and ophthalmic povidone-iodine 5% was instilled into the conjunctival fornices. Lidocaine gel was applied to the cornea and the silvestre-ocular area was prepped with Betadine 10% solution and drap ed in the usual sterile fashion for intraocular surgery, including an aperture drape. A Tegaderm transparent film dressing was cut in half and used to cover the lashes and lid margins. Care was taken to sequester the lashes and lid margins under the Tegaderm dressing. A lid speculum was placed between the lids of the operative eye and the Jewel-Casie operating microscope was maneuvered into position. Elmo scissors were then used to make a conjunctival buttonhole approximately 6mm posterior to the limbus in the inferonasal quadrant. Blunt dissection was carried out to expose bare sclera, and a blunt-tipped sub-tenon?s anesthesia cannula was introduced and passed posteriorly along the globe where non- preserved plain lidocaine was injected into posterior sub-Tenon?s space. A sideport knife was used to make a paracentesis port inferotemporally. Intraocular phenylephrine/lidocaine was injected into the anterior chamber. The anterior chamber was filled with viscoelastic. A 2.4mm keratome knife was used to create a half-thickness groove at the limbus and then to construct a three- plane near-clear corneal tunnel extending 2.0mm into clear cornea superiortemporally. A flap was raised on the anterior capsule and capsulorhexis forceps were used to complete a continuous curvilinear capsulorhexis of 5.0 mm. The anterior chamber was noted to be moderately shallow. The anterior capsule was very thin. Posterior pressure was also noted. A significant amount of Viscoat had to be reinstilled during capsulorrhexis creation. Balanced salt solution was then used to perform cortical cleaving hydrodissection and nuclear hydrodelineation until the lens could be freely rotated within the capsular bag. The lens nucleus was then disassembled and removed within the capsular bag and iris plane using phacoemulsification. Residual cortical material was removed using the I/A handpiece. The posterior capsule was carefully polished to remove as much residual lens epithelial cells as safely possible. The vast majority of posterior subcapsular plaque was safely removed. The capsular bag was then inflated and the anterior chamber deepened with viscoelastic. The lens implant described above was inserted into the capsular bag using the DEBO [place] Injector. A Kuglen hook was used to dial the IOL into position. Residual viscoelastic was then removed first from posterior to the IOL, then from the anterior chamber using the I/A handpiece. The lens implant was noted to center nicely within the capsular bag. The incisions were stromally hydrated, and the anterior chamber was reformed using BSS. Then 0.5cc of moxifloxacin 1.0mg/ml were injected into the capsular bag and anterior chamber. The incisions were checked with a Weck spear and found to be secure. Several drops of ophthalmic povidone-iodine 5% were then applied to the eye followed by two drops of Imprimis combination prednisolone/moxifloxacin/nepafenac solution. The drapes were removed and a clear plastic protective eye shield was placed over the eye. The patient was then returned to Same Day Surgery in stable condition.
[2021-03-23 08:44] VITALS: BP 128/69; PULSE 71; RESP 16; TEMP 37; O2SAT 97
--- NOTE | 2021-03-23 08:47 | W.ANESPOSTOP ---
Postoperative Evaluation Date, Time and Location Date Performed: 03/23/21 Time Performed: 08:40 Patient Location: Day Surgery Unit Vital Signs Most Recent Imported Vital Signs: Most Recent Vital Signs Temp Pulse Resp BP Pulse Ox 37.0 C 71 16 128/69 97 03/23/21 08:44 03/23/21 08:44 03/23/21 08:44 03/23/21 08:44 03/23/21 08:44 Pain Score Most Recent Pain Score: Most Recent Pain Score Pain Level 0 03/23/21 08:44 Assessment Mental Status: Awake (Alert & Oriented to Patient Baseline) Airway and Respiratory Function: Patent airway with normal (patient baseline) respiratory exam Cardiovascular Function: Hemodynamically Stable Hydration Status: Adequately Hydrated Nausea & Vomiting: No Nausea or Vomiting Pain: Pt. Denies Any Pain Peripheral Nerve Block: Other (Local by Dr. Goodwin)
== END 2021-03-23 08:59 | disposition home or self-care (01) ==
PROVIDERS: PCP Family Medicine; Visit Provider Ophthalmology
PROC: (CPT 66984; principal; 2021-03-23 07:30)
DX: H25.041 Posterior subcapsular polar age-related cataract, right eye (principal); E11.9 Type 2 diabetes mellitus without complications; G47.33 Obstructive sleep apnea (adult) (pediatric)
CPT/HCPCS: 66984; V2632